=== PATIENT | male | born 1950 | race Caucasian/White ===

== ENCOUNTER 2020-06-07 13:28 | Emergency (ER) | payer MEDICARE ==
[~2020-06-07] VITALS: Ht 170.2 cm; Wt 74.8 kg
[2020-06-07 14:25] LABS: BASOPHILS ABSOLUTE AUTO 0.05 K/mm3 (0.00-0.23); BASOPHILS PERCENT AUTO 0 % (0-2); EOSINOPHILS ABSOLUTE AUTO 0.03 K/mm3 (0.00-0.68); EOSINOPHILS PERCENT AUTO 0 % (0-6); Hematocrit 42.8 % (37.0-53.0); Hemoglobin 14.6 g/dL (13.5-17.5); IMMATURE GRAN ABSOLUTE AUTO 0.05 K/mm3 (0.00-0.10); IMMATURE GRAN PERCENT AUTO 0 % (0-1); LYMPHOCYTES ABSOLUTE AUTO 1.76 K/mm3 (0.84-5.20); LYMPHOCYTES PERCENT AUTO 11 % (21-46); MONOCYTES PERCENT AUTO 4 % (4-13); Mean Corpuscular HGB Conc 34.1 g/dL (31.5-36.5); Mean Corpuscular Volume 100 fL (80-100); Mean Platelet Volume 10.1 fL (9.1-12.4); NEUTROPHILS ABSOLUTE AUTO 13.76 K/mm3 (1.96-9.15); NEUTROPHILS PERCENT AUTO 84 % (41-73); Platelet Count 233 K/mm3 (150-400); RDW Coefficient Variation 11.6 % (11.7-14.2); RDW Standard Deviation 42.9 fL (35.1-46.3); Red Blood Cell Count 4.29 M/mm3 (4.30-5.90); White Blood Cell Count 16.35 K/mm3 (4.00-11.30)
[2020-06-07 14:27] LABS: Alanine Aminotransfer (ALT/SGP 13 U/L (12-78); Albumin, Blood 3.4 g/dL (3.4-5.0); Alk Phos 49 U/L (50-136); Anion Gap 5 mmol/L (6-16); Aspartate Aminotrans (AST/SGOT 14 U/L (12-37); Bilirubin, Total 0.4 mg/dL (0.1-1.0); Blood Urea Nitrogen 18 mg/dL (8-24); Bun/Creatinine Ratio 16.2 (12.0-20.0); CO2, Blood 28 mmol/L (21-32); Calcium, Blood 8.7 mg/dL (8.5-10.1); Chloride, Blood 108 mmol/L (98-108); Creatinine, Blood 1.11 mg/dL (0.60-1.20); Globulin, Blood 3.3 g/dL (2.2-4.0); Glomerular Filtration Rate >60 (60-); Glucose, Blood 172 mg/dL (70-99); Potassium, Blood 3.7 mmol/L (3.5-5.5); Sodium, Blood 141 mmol/L (136-145); Total Protein, Blood 6.7 g/dL (6.4-8.2)
[2020-06-07 15:29] LABS: Source, Urine Clean Catch
[2020-06-07 15:38] LABS: Appearance, Urine Clear (Clear); Bilirubin, Urine Neg (Neg); Blood, Urine Neg (Neg); Color, Urine Yellow (P-Yellow); Glucose Qualitative, Urine Neg (Neg); Ketones, Urine 1+ (Neg); Leukocyte Esterase, Urine 1+ (Neg); Nitrite, Urine Neg (Neg); Protein, Urine Neg (Neg); Specific Gravity, Urine 1.015 (1.003-1.022); Urobilinogen, Urine NORM (Normal); pH, Urine 6.5 (5.0-8.0)
[2020-06-07 15:49] LABS: Bacteria Few /hpf; Red Blood Cells, Urine 0-2 /hpf (0-2); Squamous Epithelial Cells Few /hpf (Few); White Blood Cells, Urine 0-2 /hpf (0-5)
[2020-06-07] MEDS ORDERED: ONDA4ODT MM (17:28)
[2020-06-07] MEDS ORDERED: MECL25 PO (17:28)
== END 2020-06-07 17:40 | disposition home or self-care (01) ==
LOC: ER 13:28
PROVIDERS: Emergency Medicine
DX: K52.9 Noninfective gastroenteritis and colitis, unspecified (principal); R42 Dizziness and giddiness
CPT/HCPCS: 70450; 74176; 80053; 81001; 83690; 85025; 87086; 93005; 93010; 99284-25; J2405; J7030

== ENCOUNTER 2024-06-27 14:03 | Emergency (ER) | payer MEDICARE ==
[~2024-06-27] VITALS: Ht 170.2 cm; Wt 72.6 kg
[~2024-06-27 14:03] MED LIST: MECL25 PO; ONDA4ODT MM
[2024-06-27] MEDS ORDERED: Diphth,Pertuss(Acell),Tet Vac 0.5 ML VIAL IM ONE (14:20)
[2024-06-27] MEDS ORDERED: CeFAZolin Sodium 1,000 MG in NS 50 ML IV ONE (15:25)
[2024-06-27] MEDS ORDERED: Percocet 5-3251 EACH PO (17:32)
[2024-06-27 17:56] VITALS: BP 126/73
== END 2024-06-27 17:56 | disposition home or self-care (01) ==
LOC: ER 14:03
DX: S62.613B Displaced fracture of proximal phalanx of left middle finger, initial encounter for open fracture (principal); W31.89XA Contact with other specified machinery, initial encounter; F41.9 Anxiety disorder, unspecified
CPT/HCPCS: 12002; 73130; 96365-59; 99283-25; J0690